=== PATIENT | male | born 1960 | race Caucasian/White ===

== ENCOUNTER 2022-06-08 13:04 | Outpatient (CLI) | payer MEDICAID | END 2022-06-08 23:59 | disposition home or self-care (01) | LOC: RAD 13:04 | PROVIDERS: ATTEND General Practice | DX: I51.7 Cardiomegaly (principal); F11.20 Opioid dependence, uncomplicated | CPT/HCPCS: 93005 ==

== ENCOUNTER 2024-10-12 22:19 | Emergency (ER) | payer MEDICAID ==
[~2024-10-12] VITALS: Ht 175.3 cm; Wt 114.7 kg
[2024-10-12 22:21] VITALS: TEMP 97.6
[2024-10-12 23:40] LABS: MEAN PLATELET VOLUME 6.7 FL (7.4-10.4); RED CELL DISTRIBUTION WIDTH 17.0 % (11.5-14.5)
[2024-10-12 23:52] LABS: CREATININE 0.83 MG/DL (0.60-1.10); TOTAL CARBON DIOXIDE 31.2 MMOL/L (24-32); eCRCL 92 ML/MIN; eGFR > 90 ML/MIN
[2024-10-12 23:59] LABS: PRO BRAIN NATRIURETIC PEPTIDE 141 PG/ML (0-125)
[2024-10-13] MEDS ORDERED: CLIN300C63 PO (00:30)
--- NOTE | 2024-10-13 00:30 | Physician Documentation ---
History of Present Illness ~ Chief Complaint: Leg Pain Stated Complaint: CELLULITIS ON LEGS Time Seen by MD: 22:55 Primary Medical Doctor: JOSE ALFREDO Mode of Arrival: Ambulatory HPI 64 year old male reports recurrence of chronic BLE swelling with L>R. He also reports pain and redness to the posterior aspect of his left lower leg as well. Denies fever, N/V/D, cough, shortness of breath. Tetanus witin 5 years: No Medication Reconciliation Allergies: Coded Allergies: Penicillins (Verified Allergy, Unknown, 10/12/24) Past Medical History Past Medical History: MRSA Abscess Past Surgical History: orthopedic surgeries Other Past Surgical History: Knee surgery Smoking Status: Current every day smoker Alcohol Use: Occasionally Drug Use: none Lives with: S/O Lives In: Home Occupation: employed Review of Systems All Other Systems at this time: Reviewed and Negative Physical Exam Vital Signs: RN Vital Signs have been reviewed: Yes, Temperature: 97.6, Source: Oral, Heart Rate: 105, Respiratory Rate: 16, BP: 114/76, Pulse Oximetry: 93, Paul ght: 114.700 Oxygen Flow Rate: 0 Physical Exam HEENT: PERRL, moist oral mucosa, EOMI Pulmonary: No respiratory distress MSK: no deformity; bilateral shins with dusky/thickened skin and 1-2+ pitting edema; L posterior calf with +erythema and tenderness diffusely, mild induration. Skin: w/d/i, no rash Neuro: alert, nonfocal Psych: normal affect Progress Results/Orders Results/Orders Completed Orders - MAURI RODRIGUEZ MD Cbc/Diff (10/12/24 23:01) CMP (10/12/24 23:01) PBNP (10/12/24 23:01) Vital Signs 10/12/24 10/12/24 22:21 23:06 Temp 97.6 Pulse 105 Resp 16 16 B/P (MAP) 114/76 Pulse Ox 93 O2 Flow Rate 0 Laboratory Tests Test 10/12/24 23:27 White Blood Count 5.1 Red Blood Count 4.33 L Hemoglobin 11.6 L Hematocrit 35.1 L Mean Corpuscular Volume 80.9 Mean Corpuscular Hemoglobin 26.7 L Mean Corpuscular Hemoglobin Concent 32.9 L Red Cell Distribution Width 17.0 H Platelet Count 438 Mean Platelet Volume 6.7 L Neutrophils (%) (Auto) 45.8 Lymphocytes (%) (Auto) 41.3 Monocytes (%) (Auto) 9.7 Eosinophils (%) (Auto) 2.5 Basophils (%) (Auto) 0.7 Neutrophils # (Auto) 2.3 Lymphocytes # (Auto) 2.1 Monocytes # (Auto) 0.5 Eosinophils # (Auto) 0.1 Basophils # (Auto) 0.0 CBC Comment Sodium Level 136 Potassium Level 3.8 Chloride Level 101 Carbon Dioxide Level 31.2 Anion Gap 4 L Blood Urea Nitrogen 9 Creatinine 0.83 Estimated GFR/1.73 m2 > 90 BUN/Creatinine Ratio 10.8 Glucose Level 129 H Calcium Level 8.3 L Total Bilirubin 0.2 Aspartate Amino Transf (AST/SGOT) 17 Alanine Aminotransferase (ALT/SGPT) 16 Alkaline Phosphatase 89 Pro-B-Type Natriuretic Peptide 141 H Total Protein 7.4 Albumin 2.4 L Globulin 5.0 H Albumin/Globulin Ratio 0.5 L Chemistry Comments Medical Decision Making Findings 64 year old male with apparent chronic venous stasis dermatitis and possible overlying cellulitis. Labs were unremarkable, will treat empirically as cellulitis and discharge with f/u PCP. Additional Comment Ddx = chronic venous stasis dermatitis, peripheral edema, DVT, cellulitis Departure Disposition: HOME / SELF CARE / HOMELESS Impression: Primary Impression: Cellulitis Condition: Stable Discharge Instructions: Cellulitis, Adult Referrals: NO PRIMARY CARE PROVIDER (PCP) Prescriptions Clindamycin HCl (Clindamycin HCl) 300 Mg Capsule 1 CAP PO Q12H for 7 Days, #14 CAP Prov: MAURI RODRIGUEZ MD 10/13/24 Education Educated: Patient Educated regarding: diagnosis, treatment, prognosis, need for follow up Signature Scribe Signature: . Attestation: MAURI CARMICHAEL MD Oct 13, 2024 00:30
[2024-10-13] MEDS ORDERED: ONDA-243 PO (00:38)
[2024-10-13 00:46] VITALS: BP 112/78; PULSE 100; RESP 16; O2SAT 97
== END 2024-10-13 00:48 | disposition home or self-care (01) ==
LOC: ER 22:19
DX: L03.116 Cellulitis of left lower limb (principal); R06.02 Shortness of breath; F17.200 Nicotine dependence, unspecified, uncomplicated; Z88.0 Allergy status to penicillin
CPT/HCPCS: 36415; 80053; 83880; 85025; 99283

== ENCOUNTER 2024-10-19 08:58 | Emergency (ER) | payer MEDICAID ==
[~2024-10-19] VITALS: Ht 175.3 cm; Wt 102.3 kg
[~2024-10-19 08:58] MED LIST: CLIN300C63 PO; ONDA-243 PO
[2024-10-19 09:14] VITALS: BP 120/78; PULSE 84; RESP 16; TEMP 98.2; O2SAT 99
[2024-10-19] MEDS ORDERED: SULF1TAB49 PO (10:23)
[2024-10-19] MEDS ORDERED: ONDA-243 PO (10:23)
--- NOTE | 2024-10-19 10:24 | Physician Documentation ---
History of Present Illness ~ Chief Complaint: Leg Pain Stated Complaint: MED REQUEST Time Seen by MD: 10:05 Primary Medical Doctor: JOSE ALFREDO HPI 64-year-old male with chronic vascular insufficiency and chronic edema has been treated for cellulitis currently on clindamycin but left leg erythema and swelling has minimally improved. Patient has some scabbed lesion to the back of the left calf including dry callus flaky skin. Patient concerned he needs another antibiotic Tetanus witin 5 years: No Medication Reconciliation Allergies: Coded Allergies: Penicillins (Verified Allergy, Unknown, 10/19/24) Scheduled Clindamycin HCl (Clindamycin HCl), 1 CAP PO Q12H Scheduled PRN ONDANSETRON ODT 4mg tablet (Ondansetron Odt), 1 TAB PO Q6H PRN PRN for nausea/vomiting Past Medical History Past Medical History: Vascular Disease, MRSA Abscess Past Surgical History: noncontributory, orthopedic surgeries Other Past Surgical History: Knee surgery Alcohol Use: Occasionally Drug Use: none Lives with: S/O Lives In: Home Occupation: employed Review of Systems All Other Systems at this time: Reviewed and Negative Integumentary: Reports: see HPI Physical Exam Vital Signs: Temperature: 98.2, Source: Temporal, Heart Rate: 84, Respiratory Rate: 16, BP: 120/78, Pulse Oximetry: 99, Weight: 102.270 Oxygen Flow Rate: 0 Physical Exam General: Alert, no apparent distress. HEENT: PERRL, EOMI, no injection, moist mucous membranes. Neck: Full range of motion. Respiratory: Lungs clear, no respiratory distress. Chest: No accessory muscle use. Cardiovascular: Regular rate and rhythm, no murmurs. Extremities: Normal range of motion, no deformity. Nonpitting edema to bilateral lower extremities left leg with erythema no warmth scabbed scaling lesion to the left calf circulation +1 pedal pulse bilaterally movement of toes Neurologic: Oriented x4. Psychiatric: Normal mood and affect. Skin: Normal color, warm and dry. No edema, no ecchymosis. Progress Results/Orders Results/Orders Vital Signs 10/19/24 09:14 Temp 98.2 Pulse 84 Resp 16 B/P (MAP) 120/78 Pulse Ox 99 O2 Flow Rate 0 Medical Decision Making Findings Patient with chronic vascular insufficiency cellulitis is on clindamycin. Wound care provided including Xeroform and wrapping leg with Timothy wrap as he states that when he lays down his legs are not as swollen has been he is standing or sitting. Patient lives in [place] for can can see the [facility] who ultimately prescribed the clindamycin. We will switch antibiotics discussed compression stockings and chronic conditions which need to be treated by primary care Departure Time of Disposition: 10:22 Disposition: 01 HOME / SELF CARE / HOMELESS Impression: Primary Impression: Cellulitis Condition: Stable Discharge Instructions: Cellulitis, Adult Additional Instructions: Antibiotics as prescribed discussed compression stockings or even Timothy wraps for your lower extremities potentially a referral to wound care if needed. Monitor for any new or worsening symptoms and feel free to return to the ER Referrals: NO PRIMARY CARE PROVIDER (PCP) Prescriptions ONDANSETRON ODT 4mg tablet (ONDANSETRON ODT) 4 Mg Tab.rapdis 1 TABLET PO Q6H PRN for nausea/vomiting, #16 TABLET Prov: CAITLIN VAZQUEZ NP 10/19/24 Sulfamethoxazole/Trimethoprim (Bactrim Ds Tablet) 800 Mg-160 Mg Tablet 1 TAB PO Q12H for 10 Days, #20 TAB Prov: CAITLIN VAZQUEZ [employer] MANAGER 10/19/24 Education Educated: Patient Educated regarding: diagnosis, treatment, need for follow up Signature Scribe Signature: No scribe Attestation: The note accurately reflects work and decisions made by me.Caitlin Vazquez - STAS 10/19/24 10:23 CAITLIN VAZQUEZ NP Oct 19, 2024 10:24
== END 2024-10-19 10:40 | disposition home or self-care (01) ==
LOC: ER 08:58
DX: L03.116 Cellulitis of left lower limb (principal); L03.115 Cellulitis of right lower limb; Z72.89 Other problems related to lifestyle; Z88.0 Allergy status to penicillin
CPT/HCPCS: 99283